=== PATIENT | female | born 1965 | race Caucasian/White ===

== ENCOUNTER → 2024-03-31 | Outpatient (CLI) | payer BC, SELFPAY ==
[2024-03-31 16:56] LABS: Albumin, Serum 4.7 gm/dL (3.5-5.0); Anion Gap 6 (7-16); BUN/Creatinine Ratio 22 Ratio (12-20); Blood Urea Nitrogen 13 mg/dL (9-23); Carbon Dioxide 29.1 mMol/L (20.0-31.0); Chloride 107 mMol/L (98-107); Creatinine (Component) 0.6 mg/dL (0.6-1.3); Glucose 99 mg/dL (74-106); Osmolality,Calculated 283 (275-295); Phosphorous 3.5 mg/dL (2.4-5.1); Potassium 3.7 mMol/L (3.4-5.1); Sodium 142 mMol/L (136-145); eGFR > 60 See Note
== END | disposition home or self-care (01) ==
LOC: COPL 15:13
PROVIDERS: PCP Internal Medicine; Referring Provider Psychiatry & Neurology Neurology; Visit Provider Psychiatry & Neurology Neurology
DX: R42 Dizziness and giddiness (principal)
CPT/HCPCS: 36415; 80069

== ENCOUNTER → 2024-03-31 | Outpatient (CLI) | payer BC, SELFPAY ==
--- NOTE | 2024-03-31 16:19 | XR_ITS ---
Examination: MRI of brain without intravenous contrast. MRI brain with intravenous contrast. Date and time of exam:March 31, 2024 1753 hrs. Indications: Onset headache dizziness beginning one week ago Technique: Multiple axial and sagittal images of the brain to been obtained. Siemens high-resolution 1.52 Iqra short bore scanner utilized. Sagittal sections, T1 weighted images, TR 500, TE 14, are performed. Axial sections proton-density and T2-weighted images have been obtained. Inversion recovery axial images, TR 9260, TE 111, TR 2500. Diffusion weighted images, axial sections, TR 4800, TE 128, B value 1000. Axial sections, ADC map, TR 4800, TE 128. Axial and coronal images were also obtained post 17 cc gadolinium administered intravenously. Findings:: Enlargement of the sella turcica is not present. The optic chiasm and infundibular stalk are not remarkable. There is no localized enlargement of the medulla or cecy. Fourth ventricle and cerebellar tonsils appear normal in position. No subacute area of hemorrhage density is seen. Fourth ventricle is midline. Mass in the cerebellopontine angle region is not evident. 7th and 8th nerve complexes exhibit symmetry Globes are symmetrical Orbital musculature including medial lateral rectus muscles do not exhibit abnormality Increased white matter signal is not seen Effacement of the cortical sulcal markings is not identified. Mass effect upon the ventricular system is not identified. Diffusion-weighted images demonstrate no focus of restricted diffusion Contrast images demonstrate no abnormal enhancement Impression: Negative for acute hemorrhage mass effect or midline shift No acute infarct No MR findings of demyelinating disease No abnormal enhancing cerebellar or cerebral lesions
== END | disposition home or self-care (01) ==
LOC: SMRI 15:49
PROVIDERS: PCP Internal Medicine; Referring Provider Psychiatry & Neurology Neurology; Visit Provider Psychiatry & Neurology Neurology
DX: R42 Dizziness and giddiness (principal)
CPT/HCPCS: 70553; A9579